=== PATIENT | male | born 2005 | race African-American/Black ===

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

== ENCOUNTER 2023-01-11 14:06 | Outpatient (AMB) | payer OTHER, SELFPAY ==
--- NOTE | 2023-01-11 14:11 | A.OFFPC_ITS ---
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 Patient is accompanied by his mother. Past medical history significant for generalized anxiety disorder, depression, ADHD diagnosed at age 3, history of SI attempt via cutting. Patient reports currently wait list for [facility] for therapist however he has been on it for very long time. Patient previously started on escitalopram 10 mg daily for anxiety. Presents today for follow-up for this patient reports the escitalopram was working for for the 1st few weeks and he felt like the 10 mg daily was not enough since states he was having a crash daily in the afternoon 6 hours after taking the medication. Patient like to try to increase the dose. Will increase to 20 mg daily. Patient reports that establish care with psychiatry and they were reinitiating him back on his Adderall however has not yet received to prescription for this. Patient advised to follow-up his psychiatrist through [facility] Medical History (Updated 01/11/23 @ 14:19 by IFTIKHAR Damon) COVID Surgical History No pertinent past surgical history Family History Mother No problems noted. Father No problems noted. Social History Household Members: Family Housing: House Alcohol intake: never Patient Tobacco Use Status: Never used Tobacco e-Cigarette/Vaping Use: Never Used Second Hand Smoke Exposure: No service: No Current occupational status: student Cognitive needs: No Hearing needs: No Vision needs: No Questionnaire Thrive Questionnaire Date Thrive assessed: 11/09/22 SOHAM-7 AMB Questionnaire SOHAM-7 Date SOHAM - 7 assessed: 11/09/22 Source: Developed by Drs. Darci Staples, Lola Chiang, Denver Feliz and colleagues, with an educational carolyn from [employer]. Review of Systems Const Denies chills, Denies fatigue, Denies fever(s) and Denies poor appetite Eyes Denies no additional complaints ENT Reports Normal hearing present Card Denies chest pain, Denies syncope, Denies rapid heart rate and Denies dyspnea Resp Denies cough and Denies dyspnea GI Denies change in stool character, Denies constipation, Denies diarrhea, Denies nausea and Denies vomiting Denies dysuria, Denies urinary frequency and Denies urinary urgency Neuro Reports Normal hearing present, Denies confusion and Denies syncope Psych Denies confusion Endo Denies fatigue Physical exam (Primary Care) Vital Signs: Last Vital Signs Pulse 102 H 01/11/23 14:12 BP 110/72 01/11/23 14:12 Pulse Ox 100 01/11/23 14:12 Oxygen Delivery Method Room Air 01/11/23 14:12 BMI result Body Mass Index 20.8 Tobacco/Smoking Status: Tobacco use Status Tobacco use date assessed 11/09/22 01/11/23 14:17 Patient Tobacco Use Status Never used Tobacco 01/11/23 14:17 e-Cigarette/Vaping Use Never Used 01/11/23 14:17 Thrive Assessment: Date of Thrive Assessment Date Thrive assessed 11/09/22 01/11/23 14:17 Const General: No confusion Orientation/consciousness: No confusion HENMT Head: Yes normocephalic and Yes atraumatic Eyes Conjunctivae: conjunctivae normal Chest Chest palpation & inspection: normal inspection of the chest Resp Effort & Inspection: normal respiratory effort Auscultation: clear to auscultation bilaterally, no crackles, no rhonchi and no wheezes Cardio Rate: regular rate Rhythm: regular rhythm Heart sounds: S1 normal heart sound present and S2 normal heart sound present GI Inspection: Yes normal to inspection Neuro General: No confusion Cranial nerves: Yes Normal hearing present Extrem General: No edema Office Procedures Flu Questionnaire Does the patient have a severe egg allergy?: No Immunizations flu vacc [id number] 6mos up(PF) 60 mcg(15 mcgx4)/0.5 mL IM syringe Performing Provider: IFTIKHAR Damon [facility] Documented (not given) by: MERY Gonsales on 01/11/23 14:31 Reason Not Given: Patient Refused Assessment and Plan Assessment & Plan (1) Generalized anxiety disorder: Code(s): F41.1 - Generalized anxiety disorder Plan: Will increase escitalopram to 20 mg daily. Patient advised if no improvement on increased dose the escitalopram follow-up with Psychiatry regarding further recommendations (2) Major depressive disorder: Code(s): F32.9 - Major depressive disorder, single episode, unspecified Plan: Will increase escitalopram to 20 mg daily. Patient advised if no improvement on increased dose the escitalopram follow-up with Psychiatry regarding further recommendations (3) ADHD: Code(s): F90.9 - Attention-deficit hyperactivity disorder, unspecified type Plan: Patient states his psychiatrist is going to be reinitiating on his Adderall. Plan Follow-up in 1 month Orders: Orders Influenza [id number] Immunization Today Z23 - Encounter for immunization Medications: New escitalopram oxalate 20 mg PO DAILY 30 tabs 3RF Discontinued escitalopram oxalate Discontinued Reason: Duplicate 10 mg PO DAILY 30 tabs 0RF F41.1 - Generalized anxiety disorder Coding Level of Care Code Est Pt Level 3 (55107) Diagnoses Generalized anxiety disorder F41.1 Major depressive disorder F32.9 ADHD F90.9
[2023-01-11 14:12] VITALS: BP 110/72; PULSE 102; O2SAT 100; BMI 20.8
== END 2023-01-11 14:29 | disposition home or self-care (01) ==
PROVIDERS: PCP Nurse Practitioner Family; Visit Provider Nurse Practitioner Family
DX: F41.1 Generalized anxiety disorder (principal); F32.9 Major depressive disorder, single episode, unspecified; F90.9 Attention-deficit hyperactivity disorder, unspecified type
CPT/HCPCS: 99213

== ENCOUNTER 2023-08-02 14:30 | Outpatient (AMB) | payer OTHER, SELFPAY ==
--- NOTE | 2023-08-02 14:34 | A.OFFPC_ITS ---
Vital Signs 08/02/23 14:37 Height 5 ft 5 in Weight 130 lb 0.2 oz BMI 21.6 BP 120/68 Blood Pressure Location Lt brachial Position Sitting Pulse 86 Pulse Source Pulse Oximeter Pulse Oximetry (%) 97 Oxygen Delivery Method Room Air Intake Visit Reasons: Anxiety/depression f/u r/s from 06/27 & 06/30 Corsetier Required: No Allergies No Known Allergies [No Known Allergies*] Allergy (Verified 08/02/23 15:02) Medication List - Last Reconciled 08/02/23 by Nikita Armenta PA-C dextroamphetamine-amphetamine 10 mg ER (Adderall XR) 1 cap PO QAM escitalopram oxalate 20 mg PO DAILY Tobacco use date assessed: 08/02/23 Dental Screening Dental Screen Date: 08/02/23 Did you have a dental visit in the last 12 months?: Yes Did you have a dental problem in the last 6 months where you did not have access to dental care?: No Was dental information given to patient?: Patient has dentist HPI Anxiety/depression f/u r/s from 06/27 & 06/30 HPI Details Patient is a 18-year-old male here today for a follow-up visit. This the 1st time I am meeting this 18-year-old male with a past medical history significant for anxiety, depression and ADHD. .. ADHD: Was going to [facility] and was seeing a counselor and a mental health med provider whom was providing patient with his mental health medications. He is now ended his semesters in needs PCP to manage his mental health medication. He reports he has found good benefit from Adderall on staying focused on his school work and part-time job tasks. .. Anxiety/ OCD: Does continue to suffer an anxiety disorder mostly related to OCD tendencies. He does report he is a Germaphobe and often his washing his hands to the point he gets skin irritation over his hands. He is on Lexapro though feels it is not as effective as he wants. He is int erested in a dedicated medication for OCD. Will transition to fluvoxamine. Also reports he is having trouble sleeping. Has tried melatonin though was ineffective. Migraines: He also reports having intermittent episodes of migraine type headaches. He attributes this to a lot of screen time in his professional and social life. He tries to use blue light protecting eyeglasses. [facility] Medical History (Updated 08/02/23 @ 15:15 by Nikita Armenta PA-C) COVID Surgical History No pertinent past surgical history Family History Mother No problems noted. Father No problems noted. Social History Household Members: Family Housing: House Alcohol intake: never Patient Tobacco Use Status: Never used Tobacco e-Cigarette/Vaping Use: Never Used Second Hand Smoke Exposure: No service: No Current occupational status: student Cognitive needs: No Hearing needs: No Vision needs: No Questionnaire PHQ-9 Over the last 2 weeks, how often have you been bothered by any of the following problems? 1. Little interest or pleasure in doing things: more than half the days 2. Feeling down, depressed, or hopeless: several days 3. Trouble falling or staying asleep, or sleeping too much: nearly every day 4. Feeling tired or having little energy: more than half the days 5. Poor appetite or overeating: several days 6. Feeling bad about yourself - or that you are a failure or have let yourself or your family down: nearly every day 7. Trouble concentrating on things, such as reading the newspaper or watching television: nearly every day 8. Moving or speaking so slowly that other people could have noticed. Or the opposite - being so fidgety or restless that you have been moving around a lot more than usual: nearly every day 9. Thoughts that you would be better off or of hurting yourself in some way: nearly every day Total score: 21 Depression Screening Interpretation: Positive Depression Screening Follow-up: Existing condition and In treatment Depression Screening Done: Yes 38245 - PHQ-9 Billing: Yes Source: Developed by Drs. Darci Staples, Lola Chiang, Denver Feliz and colleagues, with an educational carolyn from [employer]. Thrive Questionnaire Date Thrive assessed: 08/02/23 I am a: Patient What is your living situation today?: I have a steady place to live Within the past 12 months, did the food you bought not last and you didn't have the money to get more?: Never true Within the past 12 months, did you worry whether your food would run out before you got money to buy more?: Never true Do you have trouble paying for medicines?: No Do you have trouble getting transportation to medical appointments?: No Do you have trouble paying your heating and electricity bill?: No Do you have trouble taking care of your child, family member or friend?: No Do you have trouble with day-to-day activities such as bathing, preparing meals, shopping, managing finances, etc.?: No Are you currently unemployed and looking for a job?: No Are you interested in more education?: No Please select the resources that you would like help with: None Currently or been in a relationship where the following occur: no concerns reported THRIVE Score: 0 AUDIT C Alcohol Use Questionnaire (AUDIT-C) 1. How often do you have a drink containing alcohol?: Never 3. How often do you have six or more drinks on one occasion?: Never Total Score: 0 SOHAM-7 AMB Questionnaire SOHAM-7 Date SOHAM - 7 assessed: 08/02/23 Feeling nervous, anxious, or on edge: 3 = Nearly every day Not being able to stop or control worryin = Nearly every day Worrying too much about different things: 3 = Nearly every day Trouble relaxin = Nearly every day Being so restless that it is hard to sit still: 2 = More than half the days Becoming easily annoyed or irritable: 1 = Several days Feeling afraid as if something awful might happen: 2 = More than half the days Total SOHAM-7 score (0-4 normal; 5-9 mild; 10-14 moderate; 15-21 severe): 17 Source: Developed by Drs. Darci Staples, Lola Chiang, Denver Feliz and colleagues, with an educational carolyn from [employer]. SOHAM-7 Assessment Billing SOHAM-7 Assessment Tool: SOHAM-7 Assessment 46153 Review of Systems Const Reports headache(s) Eyes Denies loss of vision ENT Denies vertigo, Denies dizziness, Reports headache(s) and Denies sore throat Card Denies chest pain, Denies leg edema and Denies lightheadedness Resp Denies cough, Denies hemoptysis and Denies wheezing GI Denies abdominal pain, Denies melena, Denies constipation, Denies diarrhea and Denies vomiting Denies dysuria, Denies urinary frequency and Denies urinary urgency Musc Denies arthralgias, Denies joint swelling, Denies numbness and Denies tingling Neuro Denies Abnormal speech present, Denies behavioral changes, Denies vertigo, Denies dizziness, Reports headache(s), Denies loss of vision, Denies memory loss, Denies numbness and Denies tingling Psych Reports abnormal sleep pattern, Reports anxiety, Denies behavioral changes, Denies depression, Denies memory loss and Denies panic attacks Lenny/Lymph Denies easy bleeding and Denies easy bruising Aller/Immun Denies wheezing Physical exam (Primary Care) Vital Signs: Last Vital Signs Pulse 86 08/02/23 14:37 BP 120/68 08/02/23 14:37 Pulse Ox 97 08/02/23 14:37 Oxygen Delivery Method Room Air 08/02/23 14:37 BMI result Body Mass Index 21.6 Tobacco/Smoking Status: Tobacco use Status Tobacco use date assessed 08/02/23 08/02/23 14:39 Patient Tobacco Use Status Never used Tobacco 08/02/23 14:39 e-Cigarette/Vaping Use Never Used 08/02/23 14:39 PHQ-9: PHQ-9 Score PHQ-9: Total score 21 08/03/23 07:34 Depression Screening Interpretation: Positive Depression Screening Follow-up: Existing condition and In treatment Thrive Assessment: Date of Thrive Assessment Date Thrive assessed 08/02/23 08/02/23 14:39 Currently or been in a relationship where the following occur: no concerns reported Const General: healthy appearing, no acute distress, alert and awake Nutritional Appearance: well nourished Orientation/consciousness: oriented to person, oriented to place and oriented to time HENMT Ears: TM's normal bilaterally General nose exam: Normal nasal mucous membranes and turbinates present Eyes Conjunctivae: conjunctivae normal Sclerae: sclerae normal Pupils: Equal, round and reactive pupils present Neck Neck: Yes no lymphadenopathy and Yes no JVD Thyroid: Thyroid normal Carotids: no bruits Resp Effort & Inspection: normal respiratory effort and not tachypneic Auscultation: no crackles, no rales, no rhonchi and no wheezes Cardio Rate: regular rate Rhythm: regular rhythm Heart sounds: no murmurs and normal S1 and S2 GI Palpation (GI): Soft to palpation, nontender, no hepatomegaly and no splenomegaly Auscultation: normal bowel sounds Skin General skin exam: no rashes or lesions noted and dry skin Neuro General: oriented to person, oriented to place and oriented to time Cranial nerves: Yes Equal, round and reactive pupils present Speech: No Abnormal speech present Gait exam (Neuro): Normal gait present Motor exam (neuro): no tremor noted Extrem Right upper extremity: full ROM Left upper extremity: full ROM Right lower extremity: full ROM; no edema Left lower extremity: full ROM; no edema Psych Mental Status: mental status grossly normal Speech and movement: Normal speech and movement present Affect: normal affect Attitude: cooperative Thought process: Normal thought process present Assessment and Plan Assessment & Plan (1) Generalized anxiety disorder: Code(s): F41.1 - Generalized anxiety disorder Plan: Patient's SOHAM-7 score positive for anxiety which has been existing condition for him. He was seeing a counselor and a mental health med provider in college though has lost follow-up with his mental health med provider due to semester being over.. Does have OCD tendencies it seems. Will transition him to fluvoxamine from Lexapro to see if it works better on his anxiety and OCD tendencies. Follow-up in 6-8 weeks to evaluate effectiveness of medication. Also having issues with sleeping. He is willing to try hydroxyzine at night to help sleep. (2) ADHD: Code(s): F90.9 - Attention-deficit hyperactivity disorder, unspecified type Qualifiers: Attention deficit-hyperactivity disorder type: predominantly inattentive Qualified Code(s): F90.0 - Attention-deficit hyperactivity disorder, predominantly inattentive type Plan: Patient does have the diagnosis of ADHD and was followed by psychiatrist on campus of [facility]. He reports good benefit from Adderall on his attention focus on school and job tasks. (3) Screening for diabetes mellitus (DM): Code(s): Z13.1 - Encounter for screening for diabetes mellitus (4) Migraines: Code(s): G43.909 - Migraine, unspecified, not intractable, without status migrainosus Orders: Orders Comprehensive Malone. Panel Fast 08/02/23 Z13.1 - Encounter for screening for diabetes mellitus Medications: New dextroamphetamine-amphetamine 15 mg ER (Adderall XR) Partial Fill upon patient request. 15 mg PO DAILY 28 caps 0RF 28 days F90.0 - Attention-deficit hyperactivity disorder, predominantly inattentive type fluvoxamine 25 mg PO BEDTIME 30 tabs 1RF 30 days F41.1 - Generalized anxiety disorder, F42.9 - Obsessive-compulsive disorder, unspecified, G43.909 - Migraine, unspecified, not intractable, without status migrainosus [id number] 250-250-65 mg (Excedrin Extra Strength) 1 tab PO Q6H PRN 20 tabs 0RF pain 5 days G43.909 - Migraine, unspecified, not intractable, without status migrainosus hydroxyzine HCl 10 mg PO BEDTIME 30 tabs 0RF 30 days F41.1 - Generalized anxiety disorder, F41.9 - Anxiety disorder, unspecified Discontinued escitalopram oxalate Discontinued Reason: Doctor's Order 20 mg PO DAILY 30 tabs 3RF Coding Level of Care Code Est Pt Level 4 (81558) Diagnoses Generalized anxiety disorder F41.1 Attention deficit hyperactivity disorder (ADHD), predominantly inattentive type F90.0 Attention deficit-hyperactivity disorder type: predominantly inattentive Screening for diabetes mellitus (DM) Z13.1 Migraines G43.909 Additional Codes SOHAM-7 Assessment Billing - SOHAM-7 Assessment Tool: SOHAM-7 Assessment 29527 ([id number])
[2023-08-02 14:37] VITALS: BP 120/68; PULSE 86; O2SAT 97; BMI 21.6
== END 2023-08-02 15:57 | disposition home or self-care (01) ==
PROVIDERS: PCP Physician Assistant; Visit Provider Physician Assistant
DX: F41.1 Generalized anxiety disorder (principal); F90.0 Attention-deficit hyperactivity disorder, predominantly inattentive type; G43.909 Migraine, unspecified, not intractable, without status migrainosus; F33.9 Major depressive disorder, recurrent, unspecified
CPT/HCPCS: 99214

== ENCOUNTER 2024-04-17 11:13 | Outpatient (AMB) | payer OTHER, SELFPAY ==
--- NOTE | 2024-04-17 11:45 | A.OFFPC_ITS ---
Vital Signs 04/17/24 11:46 Height 5 ft 5 in Weight 133 lb 6 oz BMI 22.2 BP 110/62 Blood Pressure Location Lt brachial Position Sitting Pulse 66 Pulse Source Pulse Oximeter Temp 97.5 F Temp Source Temporal Artery Scan Pulse Oximetry (%) 100 Oxygen Delivery Method Room Air Intake Visit Reasons: Annual Physical Intake Note: Patient is here today for a physical. Sample Driller Required: No Accompanied by: Mother Allergies No Known Allergies [No Known Allergies*] Allergy (Verified 04/17/24 12:01) Medication List - Last Reconciled 04/17/24 by Nikita Armenta PA-C [id number]-empdmimxquslu-mhebhpov 250-250-65 mg (Excedrin Extra Strength) 1 tab PO Q6H PRN 5 days dextroamphetamine-amphetamine 15 mg ER (Adderall XR) 15 mg PO DAILY 28 days dicyclomine 10 mg PO QID 30 days fluvoxamine 25 mg PO BEDTIME 30 days hydroxyzine HCl 10 mg PO BEDTIME 30 days Tobacco use date assessed: 08/02/23 Dental Screening Dental Screen Date: 08/02/23 HPI Annual Physical HPI Details Patient is a 18-year-old male here today for routine annual physical. Patient has a past medical history significant for anxiety, depression and ADHD. .. ADHD: Was going to [facility] and was seeing a counselor and a mental health med provider whom was providing patient with his mental health medications. He has lost follow up with a psychiatrist and now needs PCP to manage his mental health medication including a stimulant ADHD medication. He reports benefit from ADHD medication with attention and focus on his course work. .. Anxiety/ OCD: Does continue to suffer an anxiety disorder mostly related to OCD tendencies. He does report he is a Germaphobe and often his washing his hands to the point he gets skin irritation over his hands. He has unfortunately lost his left follow up with a psychiatrist He is on Lexapro though he is transitioned to fluvoxamine though did not fill those effective. Like to transition back to Lexapro. Also reports he is having trouble sleeping. Has tried melatonin though was ineffective. IBS- he has been diagnosed with IBS few years ago. He does have daily symptoms of abdominal bloating and pain worse in the morning when he wakes up. He reports he is often tardy to classes that are early 08:00 classes due to his abdominal pain. He is asking for accommodations to give him forgivingness on being up to 10 minutes tardy for a.m. classes Vaccines: Up-to-date with COVID vaccine, flu vaccine, tetanus vaccine. [facility] Medical History COVID Surgical History No pertinent past surgical history Family History Mother No problems noted. Father No problems noted. Social History (Updated 04/17/24 @ 12:06 by Nikita Armenta PA-C) Household Members: Family Housing: House Alcohol intake: never Patient Tobacco Use Status: Never used Tobacco e-Cigarette/Vaping Use: Never Used Second Hand Smoke Exposure: No service: No Current occupational status: student Current occupation: [employer] Cognitive needs: No Hearing needs: No Vision needs: No Questionnaire PHQ-9 Over the last 2 weeks, how often have you been bothered by any of the following problems? 1. Little interest or pleasure in doing things: nearly every day 2. Feeling down, depressed, or hopeless: several days 3. Trouble falling or staying asleep, or sleeping too much: nearly every day 4. Feeling tired or having little energy: nearly every day 5. Poor appetite or overeating: nearly every day 6. Feeling bad about yourself - or that you are a failure or have let yourself or your family down: nearly every day 7. Trouble concentrating on things, such as reading the newspaper or watching television: nearly every day 8. Moving or speaking so slowly that other people could have noticed. Or the opposite - being so fidgety or restless that you have been moving around a lot more than usual: nearly every day 9. Thoughts that you would be better off or of hurting yourself in some way: several days Total score: 23 Depression Screening Interpretation: Positive Depression Screening Follow-up: Existing condition Depression Screening Done: Yes 69825 - PHQ-9 Billing: Yes Source: Developed by Drs. Darci Staples, Lola Chiang, Denver Feliz and colleagues, with an educational carolyn from [employer]. Thrive Questionnaire Date Thrive assessed: 04/17/24 I am a: Patient What is your living situation today?: I choose not to answer this question Within the past 12 months, did the food you bought not last and you didn't have the money to get more?: Often true Within the past 12 months, did you worry whether your food would run out before you got money to buy more?: Often true Do you have trouble paying for medicines?: No Do you have trouble getting transportation to medical appointments?: No Do you have trouble paying your heating and electricity bill?: No Do you have trouble taking care of your child, family member or friend?: No Do you have trouble with day-to-day activities such as bathing, preparing meals, shopping, managing finances, etc.?: No Are you currently unemployed and looking for a job?: No Are you interested in more education?: Yes Please select the resources that you would like help with: Food, Utilities and Education Currently or been in a relationship where the following occur: No concerns reported THRIVE Score: 2 AUDIT C Alcohol Use Questionnaire (AUDIT-C) 1. How often do you have a drink containing alcohol?: Never 3. How often do you have six or more drinks on one occasion?: Never Total Score: 0 SOHAM-7 AMB Questionnaire SOHAM-7 Date SOHAM - 7 assessed: 04/17/24 Feeling nervous, anxious, or on edge: 3 = Nearly every day Not being able to stop or control worryin = Nearly every day Worrying too much about different things: 3 = Nearly every day Trouble relaxin = Nearly every day Being so restless that it is hard to sit still: 3 = Nearly every day Becoming easily annoyed or irritable: 3 = Nearly every day Feeling afraid as if something awful might happen: 3 = Nearly every day Total SOHAM-7 score (0-4 normal; 5-9 mild; 10-14 moderate; 15-21 severe): 21 Source: Developed by Drs. Darci Staples, Lola Chiang, Denver Feliz and colleagues, with an educational carolyn from [employer]. SOHAM-7 Assessment Billing SOHAM-7 Assessment Tool: SOHAM-7 Assessment 71301 Review of Systems Const Denies body aches, Denies chills, Denies excessive sweating, Denies fatigue, Denies fever(s) and Denies headache(s) Eyes Denies blurry vision ENT Denies dysphagia, Denies vertigo, Denies dizziness, Denies headache(s), Denies hearing loss and Denies tinnitus Card Denies chest pain, Denies chest pain with activity, Denies syncope, Denies irregular heart rhythm and Denies dyspnea Resp Denies chest congestion, Denies cough, Denies hemoptysis, Denies dyspnea and Denies wheezing GI Denies abdominal pain, Denies melena, Denies hematochezia, Denies coffee ground emesis, Denies dysphagia, Denies diarrhea, Denies nausea and Denies vomiting Denies difficulty urinating, Denies dysuria, Denies urinary frequency, Denies urinary hesitancy and Denies urinary urgency Musc Denies arthralgias, Denies limited range of motion, Denies muscle cramps and Denies muscle weakness Skin/Breast Denies rash and Denies skin ulcer Neuro Denies Abnormal speech present, Denies confusion, Denies vertigo, Denies dizziness, Denies syncope, Denies headache(s), Denies memory loss and Denies seizure-like activity Psych Denies anxiety, Denies confusion, Denies depression, Denies memory loss, Denies panic attacks and Denies paranoia Endo Denies excessive sweating, Denies fatigue, Denies flushing, Denies polydipsia and Denies polyuria Aller/Immun Denies wheezing Physical exam (Primary Care) Vital Signs: Last Vital Signs Temp 97.5 F 04/17/24 11:46 Pulse 66 04/17/24 11:46 BP 110/62 04/17/24 11:46 Pulse Ox 100 04/17/24 11:46 Oxygen Delivery Method Room Air 04/17/24 11:46 BMI result Body Mass Index 22.2 Tobacco/Smoking Status: Tobacco use Status Tobacco use date assessed 08/02/23 04/17/24 11:45 Patient Tobacco Use Status Never used Tobacco 04/17/24 12:06 e-Cigarette/Vaping Use Never Used 04/17/24 12:06 PHQ-9: PHQ-9 Score PHQ-9: Total score 23 04/17/24 13:38 Depression Screening Interpretation: Positive Depression Screening Follow-up: Existing condition Thrive Assessment: Date of Thrive Assessment Date Thrive assessed 04/17/24 04/17/24 11:48 Currently or been in a relationship where the following occur: No concerns reported Const General: cooperative, comfortable, no acute distress, alert and awake; No confusion Orientation/consciousness: oriented to person, oriented to place, patient oriented x3 and No confusion HENMT Head: Yes normocephalic Ears: external ears normal and TM's normal bilaterally Face and sinus: No sinus tenderness Mouth: Normal oral and palatal mucosa present and tongue normal Teeth and gingiva: dentition normal and gingiva normal Throat: Yes posterior oropharynx normal, Yes tonsils normal and Yes uvula midline Eyes Conjunctivae: conjunctivae normal Sclerae: sclerae normal Pupils: Equal, round and reactive pupils present EOM: EOMs intact bilaterally Direct Ophthalmoscopy: No no photophobia Neck Neck: Yes no lymphadenopathy, No tender and Yes no JVD Thyroid: Thyroid normal Carotids: no bruits Chest Chest palpation & inspection: no tenderness Resp Effort & Inspection: normal respiratory effort, no audible wheezes, not labored and no stridor Auscultation: no crackles, no rales, no rhonchi and no wheezes Cardio Jugular venous distension: no JVD Rate: regular rate, not bradycardic and not tachycardic Rhythm: regular rhythm Bruits: no carotid bruits Peripheral pulses: Peripheral pulses 2+ throughout GI Inspection: Yes normal to inspection, No abdominal wall ecchymosis and No visible herniation Palpation (GI): Soft to palpation, nontender, no guarding, not rigid and No hepatosplenomegaly present Auscultation: normoactive bowel sounds General: Yes no CVA tenderness Back/Spine/Pelvis Back: no CVA tenderness and No back tenderness Cervical Spine: cervical ROM normal Thoracic/Lumbar Spine: thoracic and lumbar spine normal to inspection, straight leg raise negative bilaterally, No thoraco-lumbar ROM limited and No lumbar spinal tenderness Skin Lesions: no lesions Rashes: no rashes Wounds: no wounds Neuro General: oriented to person, oriented to place, patient oriented x3, CN's II-XI intact bilaterally and No confusion Cranial nerves: Yes Equal, round and reactive pupils present and Yes Normal accommodation reflex present Cognition (Neuro): normal cognition Speech: No Abnormal speech present Gait exam (Neuro): Normal gait present Motor exam (neuro): 5/5 motor strength present throughout Extrem Right upper extremity: full ROM; no cyanosis Left upper extremity: full ROM; no cyanosis Right lower extremity: no edema Left lower extremity: no edema Psych Appearance: grossly normal Mental Status: mental status grossly normal Affect: normal affect Attitude: cooperative Thought process: Normal thought process present Office Procedures Flu Questionnaire Does the patient have a severe egg allergy?: No Does the patient have severe life threatening allergies?: No Does the patient have a fever or illness today?: No Has the patient ever had Guillain-[place] Syndrome?: No Has the patient ever had any past reaction to a flu shot?: No Immunizations Fluarix Triv 0851-1308 (PF) 45 mcg (15 mcg x 3)/0.5 mL IM syringe Performing Provider: Nikita Armenta PA-C [facility] Administered by: IVETT Calvert on 04/17/24 11:54 Dose Route Admin Location Dispensed Lot Number Expiration Date NDC Mental Retardation Nurse 0.5 mL IM Left Deltoid 0.5 mL [id number] 09/18/24 [id number] [facility] VIS Given Date VIS Provided VIS Publication Date 04/17/24 Single Vaccine 20 Eligibility Eligibility Date Funding Source Not [facility] Eligible 04/17/24 Private Coding Level of Care Code Est Pt Prev Care 18-39y([id number]) Diagnoses Annual physical exam Z00.00 Moderate episode of recurrent major depressive disorder F33.1 Active/Remission status: currently active Major depression episode severity: moderate Major depression recurrence: recurrent Generalized anxiety disorder F41.1 Attention deficit hyperactivity disorder (ADHD), predominantly inattentive type F90.0 Attention deficit-hyperactivity disorder type: predominantly inattentive Mixed obsessional thoughts and acts F42.2 Obsessive-compulsive disorder type: mixed obsessional thoughts and acts Irritable bowel syndrome with both constipation and diarrhea K58.2 Irritable bowel syndrome type: with both diarrhea and constipation Additional Codes SOHAM-7 Assessment Billing - SOHAM-7 Assessment Tool: SOHAM-7 Assessment 09472 ([id number]) PHQ-9 - 04895 - PHQ-9 Billing: Yes ([id number]) Assessment & Plan Assessment & Plan (1) Annual physical exam: Code(s): Z00.00 - Encounter for general adult medical examination without abnormal findings Category: Medical Plan: As per HPI (2) Major depressive disorder: Code(s): F32.9 - Major depressive disorder, single episode, unspecified Category: Medical Qualifiers: Active/Remission status: currently active Major depression episode severity: moderate Major depression recurrence: recurrent Qualified Code(s): F33.1 - Major depressive disorder, recurrent, moderate Plan: Patient's PHQ-9 score positive for depression which has been existing condition for him. He is interested in restarting Lexapro 10 mg for his depression and anxiety. He is looking to get back into a counselor and eventually a psychiatrist to manage his mental health as well. (3) Generalized anxiety disorder: Code(s): F41.1 - Generalized anxiety disorder Category: Medical Plan: Patient's SOHAM-7 positive for anxiety which has been existing condition for him. He also has OCD. Again will restart Lexapro 10 mg (4) ADHD: Code(s): F90.9 - Attention-deficit hyperactivity disorder, unspecified type Category: Medical Qualifiers: Attention deficit-hyperactivity disorder type: predominantly inattentive Qualified Code(s): F90.0 - Attention-deficit hyperactivity disorder, predominantly inattentive type Plan: As per HPI patient does have history of ADHD and was on stimulant ADHD medication. He has lost follow-up with Psychiatry in needs PCP to manage his stimulant ADHD medication. 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 (5) OCD (obsessive compulsive disorder): Code(s): F42.9 - Obsessive-compulsive disorder, unspecified Category: Medical Qualifiers: Obsessive-compulsive disorder type: mixed obsessional thoughts and acts Qualified Code(s): F42.2 - Mixed obsessional thoughts and acts Plan: As above (6) Irritable bowel syndrome: Code(s): K58.9 - Irritable bowel syndrome, unspecified Category: Medical Qualifiers: Irritable bowel syndrome type: with both diarrhea and constipation Qualified Code(s): K58.2 - Mixed irritable bowel syndrome Plan: As per HPI patient has a long history of irritable bowel syndrome likely related to his mental health disorders. He reports in the mornings his symptoms are worse with abdominal bloating and pain that is not allow him to get started early enough to make it to his classes. Orders: Orders Influenza [id number] Immunization Today Z23 - Encounter for immunization Comprehensive [place]. Panel Fast Today Z13.1 - Encounter for screening for diabetes mellitus Complete Blood Count no Diff Today Z13.1 - Encounter for screening for diabetes mellitus Medications: New escitalopram oxalate 10 mg PO DAILY 30 tabs 0RF 30 days F42.9 - Obsessive- compulsive disorder, unspecified Refilled dextroamphetamine-amphetamine 15 mg ER (Adderall XR) Partial Fill upon patient request. 15 mg PO DAILY 28 caps 0RF 28 days F90.0 - Attention-deficit hyperactivity disorder, predominantly inattentive type Discontinued fluvoxamine Discontinued Reason: Doctor's Order 25 mg PO BEDTIME 30 days 30 tabs 1RF F41.1 - Generalized anxiety disorder, F42.9 - Obsessive-compulsive disorder, unspecified, G43.909 - Migraine, unspecified, not intractable, without status migrainosus
[2024-04-17 11:46] VITALS: BP 110/62; PULSE 66; TEMP 36.4; O2SAT 100; BMI 22.2
--- OUTSIDE RECORDS SUMMARY | 2024-04-17 16:08 | XMS_ITS | Continuity of Care Document ---
Author Organization [facility] Address [address] [place] [address] Phone Care Team Providers Care Html Developer Name Role Phone Aiden Chiang RDH Unavailable [...] ANY ROUTE 1ST VAC/TOX, W/ Counseling HPV [id number],nonaval HP V 3 Dose IMMUNIZATION ADM <= [...] Diagnoses Date Provider Providers Copied on Encounter [facility], [address] [place], [address], [place] tel:[phone] [facility] Dental Encounter for dental exam and cleaning w/o abnormal findings [address], [id number] , [place], [place], [id number], [place]. tel:[phone] PREV VISIT, EST, AGE 5-11 [facility], [address] [place] [address], [address], [place] tel:[phone] [facility] Pediatrics Well Visit (preventat reyna) (chief [...] tension-type headache, not intractable 6 No Information [facility], [address] [place] [address], [address], [place] tel:[phone] [facility] Pediatrics No Information 6 No Information [facility], [address] [place] [address], [address], [place] tel:[phone] [facility] Dental Encounter for dental exam and cleaning w/o abnormal findings [address] [place] [address], [id number] [place], [place], [id number], [place]. tel:[phone] OFFICE/OUTPA TIENT VISIT, [facility], [address] [place] [address], [address], [place] tel:[phone] [facility] Pediatrics fever (chief complaint) Upper respiratory infection with cough and congestion 6 No Information OFFICE/OUTPA TIENT VISIT, [facility], [address] [place] [address], [address], [place] tel:[phone] [facility] Pediatrics Abdominal pain (chief complaint) Viral infectionCons tipation 5 No Information [facility], [address] [place] [address], [address], [place] tel:[phone] [facility] Pediatrics No Information 4 No Information PREV VISIT, [facility], AGE 5-11 [facility], [address] [place] [address], [address], [place] tel:[phone] [facility] Pediatrics Well Visit (preventat reyna) (chief complaint) hgb 11 (chief complaint) ADD/ADHD (chief complaint) ROUTIN CHILD HEALTH EXAMEXAM EARS & HEARING NECDietary surveillance and counselingScr eening for iron deficiency anemiaADHD 4 No Information [facility], [address] [place], [address], tel:[phone] Conversion NEED FOR INFLUENZA VACCINATIONWE CHILD - ROUTINE VISITECZEMA 3 No Information [facility], [address] [place], [address], tel:[phone] Historic Immunization Location No Information 3 No [...] Provider Hib (PRP-OMP) administered Source: Other Provider MMR administered Source: Other P rovider DTaP (younger than 7 yrs) administered So urce: Other Provider PCV13 administered Source: Other P rovider diphtheria, tetanus toxoids and acellular pertussis vaccine, Haemophilus influenzae type b conjugate, and poliovirus vaccine, inactivated (UDfN-Ebb-WBP) administered Source: Other Provider Hep B (ped/adol, 3 dose) administered Mar rce: Other Provider PCV13 administered Source: Other P rovider diphtheria, tetanus toxoids and acellular pertussis vaccine, Haemophilus influenzae type b conjugate, and poliovirus vaccine, inactivated (DMzZ-Djj-RPU) administered Source: Other Provider Hep B (ped/adol, 3 dose) administered Mar rce: Other Provider diphtheria, tetanus toxoids and acellular pertussis vaccine, Haemophilus influenzae type b conjugate, and poliovirus vaccine, inactivated ([id number]-[id number]-[id number]) administered Source: Other Provider PCV13 administered Source: Other P rovider Hep B (ped/adol, 3 dose) administered Mar rce: Other Provider IMMUNE ADMIN ORAL/NASAL administered Sour ce: New Immunization Record Payers Payer name Insurance type Covered alliance party ID Authornoela tilarissa(s) D Medicaid [id number] [employer] [id number] [employer] [id number] Social History Type Description Quantity Date Captured Comments Sex Male Smoking Status No Information Chief Complaint And Reason For Visit No Information Reason For Referral Reason For Referral No Information Plan Of Treatment Date Type Action Status Goal Diet education completed Goal Diet education completed History Of Present Illness Encounter Date Complaint History Of Prese nt Illness hgb= 14.9 Headache The severity of the problem is [...] fever, illnesses or hospitalizations. Sees dentist regularly. fever Duration is 2 Da ys. The [...] Additional information: Previously tx for ADHD in [place]. No longer taking medications. Mom would like [...] to Allergic rhinitis, unspecified allergic rhinitis type Immunizations: HPV, MCV, Tdap, f abbey Related to Encntr for routine child health exam w/o abnormal findings Benzoclin BID-Can ta ke up to 4-6 weeks to see results-Irritation may occur, limit sun exposure/use sunscreen-F/u if no improvement in 4-6 weeks for alternative treatment options Related to Acne vulgaris Referral made to [facility] Behavioral HealthMother to make appt Related to Attention-deficit hyperactivity disorder, unspecified type Diet education Related to Dieta ry counseling and surveillance Exercise education Related to Di etary counseling and surveillance Handout given Related to [...] viralIncrease fluidsTylenol/motrin for feverhoney for coughReturn to [facility] or go to the ED if symptoms worsen or do not improve.The parent/patient verbalized an understanding of all instructions. Related to Upper respiratory infection with cough and congestion Educated that antibi otics are not prescribed for viral infections. Related to Upper respiratory infection with cough and congestion 1. Increase fluids a nd increase rest.2. Branch diet as tolerated3. Use saline nasal spray, [...]
== END 2024-04-17 12:32 | disposition home or self-care (01) ==
PROVIDERS: PCP Physician Assistant; Visit Provider Physician Assistant
DX: Z00.00 Encounter for general adult medical examination without abnormal findings (principal); F33.1 Major depressive disorder, recurrent, moderate; F41.1 Generalized anxiety disorder; F90.0 Attention-deficit hyperactivity disorder, predominantly inattentive type; F42.2 Mixed obsessional thoughts and acts; K58.2 Mixed irritable bowel syndrome; Z23 Encounter for immunization

== ENCOUNTER 2024-04-17 11:13 | Outpatient (REF) | payer MEDICAID, SELFPAY ==
[2024-04-17 13:24] LABS: Hematocrit 43.5 % (42.0-52.0); Hemoglobin 14.2 g/dl (14.0-18.0); Mean Corpuscular HGB Conc 32.6 g/dl (31.0-36.0); Mean Corpuscular Hemoglobin 28.1 pg (27.0-33.0); Mean Platelet Volume 10.1 fL (9.4-12.4); Platelet Count 216 X10*3/uL (160-400); Red Blood Count 5.06 X10*6/uL (4.60-5.80); Red Cell Distribution Width 13.7 % (11.0-16.0); White Blood Count 4.7 X10*3/uL (4.8-10.8)
[2024-04-17 13:50] LABS: Alanine Aminotransferase 26 U/L (0-40); Albumin Level 4.4 g/dL (3.5-5.0); Anion Gap 12 (12-20); Aspartate Amino Transferase 21 U/L (5-37); Bilirubin Total 0.3 mg/dL (0.0-1.0); Blood Urea Nitrogen 12 mg/dL (9-16); Calcium 9.4 mg/dL (8.4-10.2); Carbon Dioxide 23 mmol/L (22-29); Chloride 110 mmol/L (96-108); Estimated Glomerular Filt Rate > 60; Glucose Fasting 94 mg/dL (60-99); Potassium 4.1 mmol/L (3.3-5.1); Sodium 141 mmol/L (135-145); Total Protein 7.6 g/dL (6.5-8.0)
[2024-04-17 14:07] LABS: Alkaline Phosphatase 79 U/L (39-117)
--- OUTSIDE RECORDS SUMMARY | 2024-04-17 17:21 | XMS_ITS | Continuity of Care Document ---
Author Organization [facility] vices Address [address] [place] [address] Phone Care Team Providers Care Enterprise Application Architect Name Role Phone Aiden Chiang RDH Unavailable Unavailable Allergies, Adverse Reactions, Alerts Substance Reaction Status Criticality No Known Allergies Active No Inform ation No Known Allergies Active No Inform ation Medications Medication Instructions Dosage Effective Dates (start - stop) Status Comments cetirizine 10 mg tablet take 1 tablet by oral route every day 10 MG - Active Flonase 50 mcg/actuation nasal spray,suspension inhale 1 spray by intranasal route every day in each nostril - Active Benzaclin 1 %-5 % topical gel apply by topical route 2 times every day to the affected area(s) in the morning and evening - Active Brand only penicillin V potassium 500 mg tablet take [...] ANY ROUTE 1ST VAC/TOX, W/ Counseling HPV [id number],nonaval HP V 3 Dose IMMUNIZATION ADM <= [...] Diagnoses Date Provider Providers Copied on Encounter [facility], [address] [place], [address], [place] tel:[phone] [facility] Dental Encounter for dental exam and cleaning w/o abnormal findings [address], [id number] , [place], [place], [id number], [place]. tel:[phone] PREV VISIT, EST, AGE 5-11 [facility], [address] [place] [address], [address], [place] tel:[phone] [facility] Pediatrics Well Visit (preventat reyna) (chief complaint) Headache (chief complaint) hgb= 14.9 (chief complaint) ADD/ADHD (chief complaint) Encntr for routine child health exam w/o abnormal findingsDieta ry counseling and surveillanceE ncounter for exam of ears and hearing w/o abnormal findingsEncou nter for screening, unspecifiedAc ne vulgarisAtten tion-deficit hyperactivity disorder, unspecified typeAllergic rhinitis, unspecified allergic rhinitis typeEpisodic tension-type headache, not intractable 6 No Information [facility], [address] [place] [address], [address], [place] tel:[phone] [facility] Pediatrics No Information 6 No Information [facility], [address] [place] [address], [address], [place] tel:[phone] [facility] Dental Encounter for dental exam and cleaning w/o abnormal findings 6 [address]fe. [address] [place] [address], [id number] [place], [place], [id number], [place]. tel:[phone] OFFICE/OUTPA TIENT VISIT, [facility], [address] [place] [address], [address], [place] tel:[phone] [facility] Pediatrics fever (chief complaint) Upper respiratory infection with cough and congestion 6 No Information OFFICE/OUTPA TIENT VISIT, [facility], [address] [place] [address], [address], [place] tel:[phone] [facility] Pediatrics Abdominal pain (chief complaint) Viral infectionCons tipation 5 No Information [facility], [address] [place] [address], [address], [place] tel:[phone] [facility] Pediatrics No Information 4 No Information PREV VISIT, [facility], AGE 5-11 [facility], [address] [place] [address], [address], [place] tel:[phone] [facility] Pediatrics Well Visit (preventat reyna) (chief complaint) hgb 11 (chief complaint) ADD/ADHD (chief complaint) ROUTIN CHILD HEALTH EXAMEXAM EARS & HEARING NECDietary surveillance and counselingScr eening for iron deficiency anemiaADHD 4 No Information [facility], [address] [place] [address], [address], tel:[phone] Conversion NEED FOR INFLUENZA VACCINATIONWE CHILD - ROUTINE VISITECZEMA 3 No Information [facility], [address] [place], [address], tel:[phone] Historic Immunization Location No Information 3 No Information Family History Family Member Type Diagnosis Age At Onset Brother Problem (finding) asthma Problem (finding) Mother Problem (finding) Anxiety Brother Problem (finding) attention defi cit hyperactivity disorder Maternal grandmother Problem (finding) asthma Brother Problem (finding) Eczema Maternal grandmother Problem (finding) migraine Immunizations Vaccine Date Status Comments HPV (9-valent) administered Source: New I mmunization Record Influenza, live, intranasal, quadrivalent administered Source: New Immuniza tion Record MCV4 (11-55 yrs) administered Source: New Immunization Record Tdap administered Source: New Imm unization Record Hep A (ped/adol, 2 dose) administered Mar rce: New Immunization Record Influenza virus vaccine, intranasal administered Source: New Immuniza tion Record Varicella administered Source: New Imm unization Record FLU VACCINE, NASAL administered Source: N ew Immunization Record MMR administered Source: Other P rovider DTaP-IPV administered Source: Other P rovider Varicella administered Source: Other P rovider Hep A (ped/adol, 2 dose) administered Mra rce: Other Provider Hib (PRP-OMP) administered Source: Other Provider MMR administered Source: Other P rovider DTaP (younger than 7 yrs) administered So urce: Other Provider PCV13 administered Source: Other P rovider diphtheria, tetanus toxoids and acellular pertussis vaccine, Haemophilus influenzae type b conjugate, and poliovirus vaccine, inactivated (QHqM-Sih-EUG) administered Source: Other Provider Hep B (ped/adol, 3 dose) administered Mar rce: Other Provider PCV13 administered Source: Other P rovider diphtheria, tetanus toxoids and acellular pertussis vaccine, Haemophilus influenzae type b conjugate, and poliovirus vaccine, inactivated ([id number]-Ozd-ETZ) administered Source: Other Provider Hep B (ped/adol, 3 dose) administered Mar rce: Other Provider diphtheria, tetanus toxoids and acellular pertussis vaccine, Haemophilus influenzae type b conjugate, and poliovirus vaccine, inactivated (KVgZ-Hpl-RPZ) administered Source: Other Provider PCV13 administered Source: Other P rovider Hep B (ped/adol, 3 dose) administered Mar rce: Other Provider IMMUNE ADMIN ORAL/NASAL administered Sour ce: New Immunization Record Payers Payer name Insurance type Covered democrat ID Authoriza tilarissa(s) D Medicaid [id number] [facility] [id number] [facility] [id number] Social History Type Description Quantity Date Captured Comments Sex Male Smoking Status No Information Chief Complaint And Reason For Visit No Information Reason For Referral Reason For Referral No Information Plan Of Treatment Date Type Action Status Goal Diet education completed Goal Diet education completed History Of Present Illness Encounter Date Complaint History Of Prese nt Illness hgb= 14.9 Well Visit (preventative) Here f or annual well child check. Pertinent past medical history includes ADHD and eczema. Child is not currently on any daily meds. Child has no known allergies. There have been no recent fever, illnesses or hospitalizations. Sees dentist regularly. ADD/ADHD The severity of the problem is moderate. The problem is worse. The frequency of the problem is daily. The behavior is described as problems at home and at school. Symptoms are associated with prior diagnosis of ADD/ADHD. Behaviors began before age 5 to some degree. Relevant symptoms of hyperactivity include fighting. Headache The severity of the problem is mild. Pain scale: 0/10. The symptoms are recurring. Locations affected include frontal. Headache timing includes daytime. Aggravating factors include anxiety and noise. Associated symptoms include phonophobia. Pertinent negatives include blurred vision, dizziness, fever, memory loss, nausea or neck stiffness. fever Duration is 2 Da ys. The [...] dizziness, dyspnea, eructation, fever, rash and vomiting. hgb 11 Well Visit (preventative) Doing well. Well hydrated. Good growth and weight gain. No recent medical problems. Sees dentist regularly. Plays footbal and basketball. ADD/ADHD The behavior is described as problems at home and at school. Symptoms are associated with prior diagnosis of ADD/ADHD. Behaviors began before age 5 to some degree. Relevant symptoms of hyperactivity include fighting. Additional information: Previously tx for ADHD in [place]. No longer taking medications. Mom would like referral. Functional Status Date Functional Assessmen t No Information Instructions Date Instruction Additional Infor luz marina tylenol or advil as neededdrink water throughout the day.Don't skip meals.Avoid caffeine (soda, tea, coffee, chocholate).Get at least 8 hours of sleep a night.F/u if headaches worsen or are not relieved by tylenol/advil. Related to Episodic tension-type headache, not intractable Immunizations: HPV, MCV, Tdap, f abbey Related to Encntr for routine child health exam w/o abnormal findings Benzoclin BID-Can ta ke up to 4-6 weeks to see results-Irritation may occur, limit sun exposure/use sunscreen-F/u if no improvement in 4-6 weeks for alternative treatment options Related to Acne vulgaris Referral made to [facility] Behavioral HealthMother to make appt Related to Attention-deficit hyperactivity disorder, unspecified type Cetirizine dailyflon ase dailyfollow-up if symptoms worsen or do not improve Related to Allergic rhinitis, unspecified allergic rhinitis type Age appropriate anti cipatory guidance discussed (11-14 years) Related to Encntr for routine child health exam w/o abnormal findings Age appropriate diet discussed (11-14 years) Related to Encntr for routine child health exam w/o abnormal findings Age appropriate safe ty discussed (11-14 years) Related to Encntr for routine child health exam w/o abnormal findings Oral Health Discussed (-14 yea rs) Related to Encntr for routine child health exam w/o abnormal findings Handout given Related to Encnt r for routine child health exam w/o abnormal findings Exercise education Related to Di etary counseling and surveillance Diet education Related to Dieta ry counseling and surveillance Rapid strep was nega tive. Throat Cx sentUpper respiratory infection, likely viralIncrease fluidsTylenol/motrin for feverhoney for coughReturn to [facility] or go to the ED if symptoms worsen or do not improve.The parent/patient verbalized an understanding of all instructions. Related to Upper respiratory infection with cough and congestion Educated that antibi otics are not prescribed for viral infections. Related to Upper respiratory infection with cough and congestion 1. Increase fluids a nd increase rest.2. Mcnairy diet as tolerated3. Use saline nasal spray, as needed, for congestion or nasal irritation.4. Acetaminophen (Tylenol) or Ibuprofen (Advil), as needed, for pain or fever. 5. Symptomatic treatment, as needed-- throat lozenges, tea/honey, etc.6. If symptoms worsen, persist longer than 1 week, or if difficulty breathing develops, return to clinic or go to the emergency room right away. Related to Viral infection Exercise education Related to Di etary surveillance and counseling Diet education Related to Dieta ry surveillance and counseling Age approriate antic ipatory guidance discussed (9-10 years) Related to ROUTIN CHILD HEALTH EXAM Age appropriate diet discussed (9-10 years) Related to ROUTIN CHILD HEALTH EXAM Age appropriate safe ty discussed (9-10 years) Related to ROUTIN CHILD HEALTH EXAM Oral Health Discussed (9-10 year s) Related to ROUTIN CHILD HEALTH EXAM Assessments Type Assessment Date No Information Patient Care Teams Name Effective Dates (start - stop) Status Members No Information
== END 2024-04-17 11:14 | disposition home or self-care (01) ==
LOC: HO.LAB 11:13
PROVIDERS: PCP Physician Assistant; Visit Provider Physician Assistant
DX: Z00.00 Encounter for general adult medical examination without abnormal findings (principal); Z23 Encounter for immunization; F33.1 Major depressive disorder, recurrent, moderate; F41.1 Generalized anxiety disorder; F90.0 Attention-deficit hyperactivity disorder, predominantly inattentive type; F42.2 Mixed obsessional thoughts and acts; K58.2 Mixed irritable bowel syndrome; Z13.1 Encounter for screening for diabetes mellitus
CPT/HCPCS: 36415; 80053; 85027; 90471; 90656; 96127; 99395

== ENCOUNTER 2024-08-21 15:07 | Outpatient (AMB) | payer OTHER, SELFPAY ==
--- NOTE | 2024-08-21 15:11 | MHC.PC.OV ---
Vital Signs 08/21/24 15:13 Height 5 ft 5 in Weight 141 lb 4 oz BMI 23.5 BP 90/60 Blood Pressure Location Lt brachial Position Sitting Pulse 73 Pulse Source Pulse Oximeter Temp 97.3 F Temp Source Temporal Artery Scan Pulse Oximetry (%) 98 Oxygen Delivery Method Room Air Intake Visit Reasons: 4 Month F/U Intake Note: Patient is here to follow up on IBS, OCD, ADHD, Migraine. Code Clerk Required: No Merchandise Buyer: Not Required per policy Accompanied by: Self / Same As Patient Allergies No Known Allergies [No Known Allergies*] Allergy (Verified 08/21/24 15:27) Medication List - Last Reconciled 08/21/24 by Nikita Armenta PA-C [id number] 250-250-65 mg (Excedrin Extra Strength) 1 tab PO Q6H PRN 5 days dextroamphetamine-amphetamine 15 mg ER (Adderall XR) 15 mg PO DAILY 28 days dicyclomine 10 mg PO QID 30 days escitalopram oxalate 10 mg PO DAILY 30 days hydroxyzine HCl 10 mg PO BEDTIME 30 days Tobacco use date assessed: 08/21/24 Dental Screening Dental Screen Date: 08/21/24 Did you have a dental visit in the last 12 months?: No Did you have a dental problem in the last 6 months where you did not have access to dental care?: No Was dental information given to patient?: Patient has dentist HPI 4 Month F/U HPI Details Patient is a 19-year-old male here today follow-up visit. Patient has a past medical history significant for anxiety, depression and ADHD. .. ADHD: Currently going to [facility] and was seeing a counselor and a mental health med provider whom was providing patient with his mental health medications. He has lost follow up with a psychiatrist and now needs PCP to manage his mental health medication including a stimulant ADHD medication. He reports benefit from ADHD medication though feels the effect of 15 mg Adderall has not been as effective lately. He is willing to increase his dose to 20 mg extended release.. .. Anxiety/ OCD: Does continue to suffer an anxiety disorder mostly related to OCD tendencies. He does report he is a Germaphobe and often his washing his hands to the point he gets skin irritation over his hands. He has unfortunately lost his left follow up with a psychiatrist He is on Lexapro though he is transitioned to fluvoxamine though did not fill those effective. Like to transition back to Lexapro. Also reports he is having trouble sleeping. Has tried melatonin though was ineffective. Vaccines: Up-to-date with COVID vaccine, flu vaccine, tetanus vaccine. [facility] Medical History COVID Surgical History No pertinent past surgical history Family History Mother No problems noted. Father No problems noted. Social History Household Members: Family Housing: House Alcohol intake: never Patient Tobacco Use Status: Never used Tobacco e-Cigarette/Vaping Use: Never Used Second Hand Smoke Exposure: No service: No Current occupational status: student Current occupation: [employer] Cognitive needs: No Hearing needs: No Vision needs: No Questionnaire Thrive Questionnaire Date Thrive assessed: 04/17/24 I am a: Patient What is your living situation today?: I choose not to answer this question Within the past 12 months, did the food you bought not last and you didn't have the money to get more?: Often true Within the past 12 months, did you worry whether your food would run out before you got money to buy more?: Often true Do you have trouble paying for medicines?: No Do you have trouble getting transportation to medical appointments?: No Do you have trouble paying your heating and electricity bill?: No Do you have trouble taking care of your child, family member or friend?: No Do you have trouble with day-to-day activities such as bathing, preparing meals, shopping, managing finances, etc.?: No Are you currently unemployed and looking for a job?: No Are you interested in more education?: Yes Currently or been in a relationship where the following occur: No concerns reported THRIVE Score: 2 SOHAM-7 AMB Questionnaire SOHAM-7 Date SOHAM - 7 assessed: 04/17/24 Source: Developed by Drs. Darci Staples, Lola Chiang, Denver Feliz and colleagues, with an educational carolyn from [employer]. Review of Systems Const Denies headache(s) Eyes Denies loss of vision ENT Denies vertigo, Denies dizziness, Denies headache(s) and Denies sore throat Card Denies chest pain, Denies leg edema and Denies lightheadedness Resp Denies cough, Denies hemoptysis and Denies wheezing GI Denies abdominal pain, Denies melena, Denies constipation, Denies diarrhea and Denies vomiting Denies dysuria, Denies urinary frequency and Denies urinary urgency Musc Denies arthralgias, Denies joint swelling, Denies numbness and Denies tingling Neuro Denies Abnormal speech present, Denies behavioral changes, Denies vertigo, Denies dizziness, Denies headache(s), Denies loss of vision, Denies memory loss, Denies numbness and Denies tingling Psych Denies anxiety, Denies behavioral changes, Denies depression, Denies memory loss and Denies panic attacks Lenny/Lymph Denies easy bleeding and Denies easy bruising Aller/Immun Denies wheezing Physical exam (Primary Care) Vital Signs: Last Vital Signs Temp 97.3 F 08/21/24 15:13 Pulse 73 08/21/24 15:13 BP 90/60 08/21/24 15:13 Pulse Ox 98 08/21/24 15:13 Oxygen Delivery Method Room Air 08/21/24 15:13 BMI result Body Mass Index 23.5 Tobacco/Smoking Status: Tobacco use Status Tobacco use date assessed 08/21/24 08/21/24 15:18 Patient Tobacco Use Status Never used Tobacco 08/21/24 15:18 e-Cigarette/Vaping Use Never Used 08/21/24 15:18 Thrive Assessment: Date of Thrive Assessment Date Thrive assessed 04/17/24 08/21/24 15:18 Currently or been in a relationship where the following occur: No concerns reported Const General: healthy appearing, no acute distress, alert and awake Nutritional Appearance: well nourished Orientation/consciousness: oriented to person, oriented to place and oriented to time HENMT Ears: TM's normal bilaterally General nose exam: Normal nasal mucous membranes and turbinates present Eyes Conjunctivae: conjunctivae normal Sclerae: sclerae normal Pupils: Equal, round and reactive pupils present Neck Neck: Yes no lymphadenopathy and Yes no JVD Thyroid: Thyroid normal Carotids: no bruits Resp Effort & Inspection: normal respiratory effort and not tachypneic Auscultation: no crackles, no rales, no rhonchi and no wheezes Cardio Rate: regular rate Rhythm: regular rhythm Heart sounds: no murmurs and normal S1 and S2 GI Palpation (GI): Soft to palpation, nontender, no hepatomegaly and no splenomegaly Auscultation: normal bowel sounds Skin General skin exam: no rashes or lesions noted and dry skin Neuro General: oriented to person, oriented to place and oriented to time Cranial nerves: Yes Equal, round and reactive pupils present Speech: No Abnormal speech present Gait exam (Neuro): Normal gait present Motor exam (neuro): no tremor noted Extrem Right upper extremity: full ROM Left upper extremity: full ROM Right lower extremity: full ROM; no edema Left lower extremity: full ROM; no edema Psych Mental Status: mental status grossly normal Speech and movement: Normal speech and movement present Affect: normal affect Attitude: cooperative Thought process: Normal thought process present Coding Level of Care Code Est Pt Level 3 (93335) Diagnoses Attention deficit hyperactivity disorder (ADHD), predominantly inattentive type F90.0 Attention deficit-hyperactivity disorder type: predominantly inattentive Moderate episode of recurrent major depressive disorder F33.1 Active/Remission status: currently active Major depression episode severity: moderate Major depression recurrence: recurrent Generalized anxiety disorder F41.1 Mixed obsessional thoughts and acts F42.2 Obsessive-compulsive disorder type: mixed obsessional thoughts and acts Assessment & Plan Assessment & Plan (1) ADHD: Code(s): F90.9 - Attention-deficit hyperactivity disorder, unspecified type Category: Medical Qualifiers: Attention deficit-hyperactivity disorder type: predominantly inattentive Qualified Code(s): F90.0 - Attention-deficit hyperactivity disorder, predominantly inattentive type Plan: As per HPI patient does have history of ADHD and was on stimulant ADHD medication. 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 Was followed by a PCP at his University though now in summer classes and mental health services are on hold. Has been using Adderall 15 mg with decent affect though feels it is not as effective as it once was. He is willing to increase his Adderall dose to 20 mg extended release (2) Major depressive disorder: Code(s): F32.9 - Major depressive disorder, single episode, unspecified Category: Medical Qualifiers: Active/Remission status: currently active Major depression episode severity: moderate Major depression recurrence: recurrent Qualified Code(s): F33.1 - Major depressive disorder, recurrent, moderate Plan: Currently still suffers with depression. He reports he has been trying some nonpharmacological treatments for both of anxiety and depression such as being more physically active and journaling. He is interested in restarting Lexapro 10 mg for his depression and anxiety. He is looking to get back into a counselor and eventually a psychiatrist to manage his mental health as well. (3) Generalized anxiety disorder: Code(s): F41.1 - Generalized anxiety disorder Category: Medical Plan: Anxiety has been existing condition for him. He also has OCD. Again will restart Lexapro 10 mg (4) OCD (obsessive compulsive disorder): Code(s): F42.9 - Obsessive-compulsive disorder, unspecified Category: Medical Qualifiers: Obsessive-compulsive disorder type: mixed obsessional thoughts and acts Qualified Code(s): F42.2 - Mixed obsessional thoughts and acts Plan: As above Medications: New dextroamphetamine-amphetamine 20 mg ER (Adderall XR) Partial Fill upon patient request. 20 mg PO DAILY 28 caps 0RF 28 days F90.0 - Attention-deficit hyperactivity disorder, predominantly inattentive type Refilled escitalopram oxalate 10 mg PO DAILY 30 tabs 3RF 30 days F42.9 - Obsessive-compulsive disorder, unspecified
[2024-08-21 15:13] VITALS: BP 90/60; PULSE 73; TEMP 36.3; O2SAT 98; BMI 23.5
--- OUTSIDE RECORDS SUMMARY | 2024-08-21 16:22 | XMS_ITS | Continuity of Care Document ---
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 [address], [id number] , [place], [place], [id number], [place]. tel:[phone] PREV VISIT, EST, AGE 5-11 [facility], [address] [place] [address], [address], [place] tel:[phone] [facility] Pediatric[facility] Well Visit (preventat reyna) (chief complaint) Headache (chief complaint) hgb= 14.9 (chief complaint) ADD/ADHD (chief complaint) Encntr for routine child health exam w/o abnormal findingsDieta ry counseling and surveillanceE ncounter for exam of ears and hearing w/o abnormal findingsEncou nter for screening, unspecifiedAc ne vulgarisAtten tion-deficit hyperactivity disorder, unspecified typeAllergic rhinitis, unspecified allergic rhinitis typeEpisodic tension-type headache, not intractable 6 No Information [facility], [address] [place] [address], [address], [place] tel:[phone] [facility] No Information 6 No Information [facility], [address] [place] [address], [address], [place] tel:[phone] [facility] Dental Encounter for dental exam and cleaning w/o abnormal findings 6 Ан[address]ей Wolfe. [address] [place] [address], [id number] [place], [place], [id number], [place]. tel:[phone] OFFICE/OUTPA TIENT VISIT, [facility], [address] [place] [address], [address], [place] tel:[phone] [facility] fever (chief complaint) Upper respiratory infection with cough and congestion 6 No Information OFFICE/OUTPA TIENT VISIT, [facility], [address] [place] [address], [address], [place] tel:[phone] [facility] Abdominal pain (chief complaint) Viral infectionCons tipation 5 No Information [facility], [address] [place] [address], [address], [place] tel:[phone] [facility] No Information 4 No Information PREV VISIT, [facility], AGE 5-11 [facility], [address] [place] [address], [address], [place] tel:[phone] [facility] Well Visit (preventat reyna) (chief complaint) hgb 11 (chief complaint) ADD/ADHD (chief complaint) ROUTIN CHILD HEALTH EXAMEXAM EARS & HEARING NECDietary surveillance and counselingScr eening for iron deficiency anemiaADHD 4 No Information [facility], [address] [place] [address], [address], tel:[phone] Conversion NEED FOR INFLUENZA VACCINATIONWE CHILD - ROUTINE VISITECZEMA 3 No Information [facility], [address] [place], [address], tel:[phone] Historic Immunization Location No Information 3 No [...] type b conjugate, and poliovirus vaccine, inactivated ([id number]-[id number]-XIU) administered Source: Other Provider Hep B (ped/adol, 3 dose) administered Mar rce: Other Provider PCV13 administered Source: Other P rovider diphtheria, tetanus toxoids and acellular pertussis vaccine, Haemophilus influenzae type b conjugate, and poliovirus vaccine, inactivated (ZWsO-Dxt-RKZ) administered Source: Other Provider Hep B (ped/adol, 3 dose) administered Mar rce: Other Provider diphtheria, tetanus toxoids and acellular pertussis vaccine, Haemophilus influenzae type b conjugate, and poliovirus vaccine, inactivated ([id number]-[id number]) administered Source: Other Provider PCV13 administered Source: Other P rovider Hep B (ped/adol, 3 dose) administered Mar rce: Other Provider IMMUNE ADMIN ORAL/NASAL administered Sour ce: New Immunization Record Payers Payer name Insurance type Covered constitution party ID Authornoela tilarissa(s) D Medicaid [id number] [facility] [id number] [facility] [id number] Social History Type Description Quantity Date Captured [...] fever, memory loss, nausea or neck stiffness. hgb= 14.9 ADD/ADHD The severity of the problem is [...] Additional information: Previously tx for ADHD in [place]. No longer taking medications. Mom would like [...] routine child health exam w/o abnormal findings Cetirizine dailyflon ase dailyfollow-up if symptoms worsen or do not improve Related to Allergic rhinitis, unspecified allergic rhinitis type Benzoclin BID-Can ta ke up to 4-6 weeks to see results-Irritation may occur, limit sun exposure/use sunscreen-F/u if no improvement in 4-6 weeks for alternative treatment options Related to Acne vulgaris Referral made to [facility] Behavioral HealthMother to make appt Related to [...] viralIncrease fluidsTylenol/motrin for feverhoney for coughReturn to [facility] or go to the ED if symptoms worsen or do not improve.The parent/patient verbalized an understanding of all instructions. Related to Upper respiratory infection with cough and congestion Educated that antibi otics are not prescribed for viral infections. Related to Upper respiratory infection with cough and congestion 1. Increase fluids a nd increase rest.2. Bent diet as tolerated3. Use saline nasal spray, as needed, for congestion or nasal irritation.4. Acetaminophen (Tylenol) or Ibuprofen (Advil), as needed, for pain or fever. 5. Symptomatic treatment, as needed-- throat lozenges, tea/honey, etc.6. If symptoms worsen, persist longer than 1 week, or if difficulty breathing develops, return to clinic or go to the emergency room right away. Related to Viral infection Oral Health Discussed (9-10 year s) Related to ROUTIN CHILD HEALTH EXAM Age appropriate safe ty discussed (9-10 years) Related to ROUTIN CHILD HEALTH EXAM Diet education Related to Dieta ry surveillance and counseling Exercise education Related to Di etary surveillance and counseling Age appropriate diet discussed (9-10 years) Related to ROUTIN CHILD HEALTH EXAM Age approriate antic ipatory guidance discussed (9-10 years) Related to ROUTIN CHILD HEALTH EXAM Assessments Type Assessment Date No Information Patient Care Teams Name Effective Dates (start - stop) Status Members No Information
== END 2024-08-21 15:52 | disposition home or self-care (01) ==
LOC: HO.HMCH 15:08
PROVIDERS: PCP Physician Assistant; Visit Provider Physician Assistant
DX: F90.0 Attention-deficit hyperactivity disorder, predominantly inattentive type (principal); F33.1 Major depressive disorder, recurrent, moderate; F41.1 Generalized anxiety disorder; F42.2 Mixed obsessional thoughts and acts

== ENCOUNTER → 2024-08-21 15:07 | Outpatient (BNVA) | payer OTHER, SELFPAY | PROVIDERS: PCP Physician Assistant; Visit Provider Physician Assistant | DX: F33.1 Major depressive disorder, recurrent, moderate (principal); K58.9 Irritable bowel syndrome, unspecified; F42.9 Obsessive-compulsive disorder, unspecified; F90.9 Attention-deficit hyperactivity disorder, unspecified type; G43.909 Migraine, unspecified, not intractable, without status migrainosus; F41.1 Generalized anxiety disorder; F42.2 Mixed obsessional thoughts and acts | CPT/HCPCS: 99212 ==

== ENCOUNTER 2024-10-19 14:58 | Outpatient (AMB) | payer OTHER, SELFPAY ==
--- NOTE | 2024-10-19 14:59 | MHC.PC.OV ---
Intake Visit Reasons: Telehealth ( follow-up ADHD ) Foreign Broadcast Specialist Required: No Accompanied by: Self / Same As Patient Allergies No Known Allergies (No Known Allergies*) Allergy (Verified 10/19/24 15:05) Medication List - Last Reconciled 10/19/24 by Nikita Armenta PA-C [id number] 250-250-65 mg (Excedrin Extra Strength) 1 tab PO Q6H PRN 5 days dextroamphetamine-amphetamine 20 mg ER (Adderall XR) 20 mg PO DAILY 28 days dicyclomine 10 mg PO QID 30 days escitalopram oxalate 10 mg PO DAILY 30 days hydroxyzine HCl 10 mg PO BEDTIME 30 days Tobacco use date assessed: 10/19/24 Dental Screening Dental Screen Date: 10/19/24 Did you have a dental visit in the last 12 months?: Yes Did you have a dental problem in the last 6 months where you did not have access to dental care?: No Was dental information given to patient?: No HPI Telehealth ( follow-up ADHD ) HPI Details Patient is a 19-year-old male being evaluated today via telephone. . Patient has a past medical history significant for anxiety, depression and ADHD. .. ADHD: Currently going to [facility] and was seeing a counselor and a mental health med provider whom was providing patient with his mental health medications. He has lost follow up with a psychiatrist and now needs PCP to manage his mental health medication including a stimulant ADHD medication. He is only using Adderall on a as needed basis for school and lab. He reports benefit from ADHD medication at 20 mg extended release. He reports maintaining a GB of 3.3 and denies any side effects from ADHD medication. .. Anxiety/ OCD: Does continue to suffer an anxiety disorder mostly related to OCD tendencies. He does report he is a Germaphobe and often his washing his hands to the point he gets skin irritation over his hands. He has unfortunately lost his left follow up with a psychiatrist He is on Lexapro though he is transitioned to fluvoxamine though did not fill those effective. Like to transition back to Lexapro. Also reports he is having trouble sleeping. Has tried melatonin though was ineffective. PFSH Medical History COVID Surgical History No pertinent past surgical history Family History Mother No problems noted. Father No problems noted. Social History Household Members: Family Housing: House Alcohol intake: never Patient Tobacco Use Status: Never used Tobacco e-Cigarette/Vaping Use: Never Used Second Hand Smoke Exposure: No service: No Current occupational status: student Current occupation: [email or web address] Cognitive needs: No Hearing needs: No Vision needs: No Questionnaire Thrive Questionnaire Date Thrive assessed: 04/17/24 AUDIT C Alcohol Use Questionnaire (AUDIT-C) 1. How often do you have a drink containing alcohol?: Never 3. How often do you have six or more drinks on one occasion?: Never Total Score: 0 SOHAM-7 AMB Questionnaire SOHAM-7 Date SOHAM - 7 assessed: 04/17/24 Source: Developed by Drs. Darci Staples, Lola Chiang, Denver Feliz and colleagues, with an educational carolyn from [employer]. Review of Systems Const Denies headache(s) Eyes Denies loss of vision ENT Denies vertigo, Denies dizziness, Denies headache(s) and Denies sore throat Card Denies chest pain, Denies leg edema and Denies lightheadedness Resp Denies cough, Denies hemoptysis and Denies wheezing GI Denies abdominal pain, Denies melena, Denies constipation, Denies diarrhea and Denies vomiting Denies dysuria, Denies urinary frequency and Denies urinary urgency Musc Denies arthralgias, Denies joint swelling, Denies numbness and Denies tingling Neuro Denies behavioral changes, Denies vertigo, Denies dizziness, Denies headache(s), Denies loss of vision, Denies memory loss, Denies numbness and Denies tingling Psych Denies anxiety, Denies behavioral changes, Denies depression, Denies memory loss and Denies panic attacks Lenny/Lymph Denies easy bleeding and Denies easy bruising Aller/Immun Denies wheezing Physical exam (Primary Care) Tobacco/Smoking Status: Tobacco use Status Tobacco use date assessed 10/19/24 10/19/24 15:04 Patient Tobacco Use Status Never used Tobacco 10/19/24 15:04 e-Cigarette/Vaping Use Never Used 10/19/24 15:04 Thrive Assessment: Date of Thrive Assessment Date Thrive assessed 04/17/24 10/19/24 15:04 Telehealth Telehealth Telehealth Platform: Telephone Location of provider rendering services: practice address Location of patient: address on file Patient Identification confirmed using: Name, : Yes Telehealth method: voice only Patient verbally consented to treatment: Yes Patient verbally consented to billing insurance company: Yes Patient informed of any privacy concerns related to visit: Yes Minutes spent on Phone/Video with Pt.: 11 Coding Level of Care Code Tele Est Pt Level 3 (61142) Diagnoses Attention deficit hyperactivity disorder (ADHD), predominantly inattentive type F90.0 Attention deficit-hyperactivity disorder type: predominantly inattentive Assessment & Plan Assessment & Plan (1) ADHD: Code(s): F90.9 - Attention-deficit hyperactivity disorder, unspecified type Category: Medical Qualifiers: Attention deficit-hyperactivity disorder type: predominantly inattentive Qualified Code(s): F90.0 - Attention-deficit hyperactivity disorder, predominantly inattentive type Plan: As per HPI patient does have history of ADHD and was on stimulant ADHD medication. 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 Was followed by a psychiatrist at his University though now in summer classes and mental health services are on hold. He currently is on Adderall 20 mg extended release which he reports his working very well for his attention focus on his school work. He is maintaining a GPA of 3.3 over the summer. He is only using the Adderall during classes and before laboratory sessions.
== END 2024-10-19 16:42 | disposition home or self-care (01) ==
LOC: HO.HMCH 14:58
PROVIDERS: PCP Physician Assistant; Visit Provider Physician Assistant
DX: F90.0 Attention-deficit hyperactivity disorder, predominantly inattentive type (principal)

== ENCOUNTER 2025-01-23 13:51 | Outpatient (AMB) | payer OTHER, SELFPAY ==
--- OUTSIDE RECORDS SUMMARY | 2015-04-12 10:00 | XMS_ITS | Continuity of Care Document ---
Author Organization [facility] Address [address] [place] [address] Phone Care Team Providers Care Community Living Specialist Name Role Phone Aiden Chiang RDH Unavailable Unavailable Allergies, Adverse Reactions, Alerts Substance Reaction Status Criticality No Known Allergies Active No Inform ation No Known Allergies Active No Inform ation Medications Medication Instructions Dosage Effective Dates (start - stop) Status Comments Benzaclin 1 %-5 % topical gel apply by topical route 2 times every day to the affected area(s) in the morning and evening - Active Brand only Flonase 50 mcg/actuation nasal spray,suspension inhale 1 spray by intranasal route every day in each nostril - Active cetirizine 10 mg tablet take 1 tablet by oral route every day 10 MG - Active penicillin V potassium 500 mg tablet take 1 tablet by oral route every 12 hours for 10 days - No Longer Active ibuprofen 200 mg tablet take 2 tablet by oral route every 6 hours as needed with food 400 MG - No Longer Active Miralax 17 gram/dose oral powder take (17G) by oral route every day mixed with 8 oz. water, juice, soda, coffee or tea - No Longer Active Procedures Procedure Date Detailed And Extensive Oral Evaluation-P justin Foc Screening PURE TONE HEARING TEST, AIR HEMOGLOBIN IMMUNIZATION ADM <= 18 YO, ANY ROUTE 1ST VAC/TOX, W/ Counseling HPV 0-10-54-72-97-38-45-52-58,nonaval HP V 3 Dose IMMUNIZATION ADM <= 18 YO, ANY ROUTE 1ST VAC/TOX, W/ Counseling Influenza Vaccine, Quad, Live LAIV4, Int ranasal IMMUNIZATION ADM <= 18 YO, ANY ROUTE 1ST VAC/TOX, W/ Counseling MENINGOCOCCAL VACCINE, Quad (MenACWY), I M IMMUNIZATION ADM <= 18 YO, ANY ROUTE 1ST VAC/TOX, W/ Counseling TDAP VACCINE >7 IM IMMUNIZATION ADM <= 18 YO, ANY ROUTE- Ad dt'l VAC/TOX, W/ Counseling PREV VISIT, EST, AGE 5-11 Detailed And Extensive Oral Evaluation-P carloslem Foc Screening Screening Screening OFFICE/OUTPATIENT VISIT, EST STREP A ASSAY W/OPTIC OFFICE/OUTPATIENT VISIT, EST PURE TONE HEARING TEST, AIR HEMOGLOBIN IMMUNIZATION ADMIN, EACH ADD HEP A VACC, PED/ADOL, 2 DOSE IMMUNIZATION ADMIN, EACH ADD FLU VACCINE, Trivalent, Live, NASAL IMMUNIZATION ADMIN CHICKEN POX VACCINE, SC PREV VISIT, EST, AGE 5-11 Advance Directives Directive Yes / No Effective Date File Name No Information Encounters Encounter Description Practice Location Reason(s) For Visit Diagnoses Date Provider Providers Copied on Encounter [facility], [address] [place], [address], [place] tel:[phone] [facility] Dental Encounter for dental exam and cleaning w/o abnormal findings [address], [id number] , [place], [place], [id number], [place]. tel:[phone] PREV VISIT, EST, AGE 5-11 [facility], [address] [place] [address], [address], [place] tel:[phone] [facility] Pediatrics Well Visit (preventat reyna) (chief complaint) Headache (chief complaint) hgb= 14.9 (chief complaint) ADD/ADHD (chief complaint) Encntr for routine child health exam w/o abnormal findingsDieta ry counseling and surveillanceE ncounter for exam of ears and hearing w/o abnormal findingsEncou nter for screening, unspecifiedAc ne vulgarisAtten tion-deficit hyperactivity disorder, unspecified typeAllergic rhinitis, unspecified allergic rhinitis typeEpisodic tension-type headache, not intractable 6 No Information [facility], [address] [place] [address], [address], [place] tel:[phone] [facility] Pediatrics No Information 6 No Information [facility], [address] [place] [address], [address], [place] tel:[phone] [facility] Dental Encounter for dental exam and cleaning w/o abnormal findings 6 [address]. [address] [place] [address], [id number] [place], [place], [id number], [place]. tel:[phone] OFFICE/OUTPA TIENT VISIT, [facility], [address] [place] [address], [address], [place] tel:[phone] [facility] Pediatrics fever (chief complaint) Upper respiratory infection with cough and congestion 6 No Information OFFICE/OUTPA TIENT VISIT, [facility], [address] [place] [address], [address], [place] tel:[phone] [facility] Pediatrics Abdominal pain (chief complaint) Viral infectionCons tipation 5 No Information [facility], [address] [place] [address], [address], [place] tel:[phone] [facility] Pediatrics No Information 4 No Information PREV VISIT, [facility], AGE 5-11 [facility], [address] [place] [address], [address], [place] tel:[phone] [facility] Pediatrics Well Visit (preventat reyna) (chief complaint) hgb 11 (chief complaint) ADD/ADHD (chief complaint) ROUTIN CHILD HEALTH EXAMEXAM EARS & HEARING NECDietary surveillance and counselingScr eening for iron deficiency anemiaADHD 4 No Information [facility], [address] [place], [address], tel:[phone] Conversion NEED FOR INFLUENZA VACCINATIONWE CHILD - ROUTINE VISITECZEMA 3 No Information [facility], [address] [place], [address], tel:[phone] Historic Immunization Location No Information 3 No Information Family History Family Member Type Diagnosis Age At Onset Brother Problem (finding) asthma Problem (finding) Mother Problem (finding) Anxiety Brother Problem (finding) attention defi cit hyperactivity disorder Maternal grandmother Problem (finding) asthma Brother Problem (finding) Eczema Maternal grandmother Problem (finding) migraine Immunizations Vaccine Date Status Comments Tdap administered Source: New Imm unization Record MCV4 (11-55 yrs) administered Source: New Immunization Record Influenza, live, intranasal, quadrivalent administered Source: New Immuniza tion Record HPV (9-valent) administered Source: New I mmunization Record Varicella administered Source: New Imm unization Record Influenza virus vaccine, intranasal administered Source: New Immuniza tion Record Hep A (ped/adol, 2 dose) administered Mar rce: New Immunization Record FLU VACCINE, NASAL administered Source: N ew Immunization Record DTaP-IPV administered Source: Other P rovider MMR administered Source: Other P rovider Varicella administered Source: Other P rovider Hep A (ped/adol, 2 dose) administered Mar rce: Other Provider Hib (PRP-OMP) administered Source: Other Provider DTaP (younger than 7 yrs) administered So urce: Other Provider MMR administered Source: Other P rovider PCV13 administered Source: Other P rovider diphtheria, tetanus toxoids and acellular pertussis vaccine, Haemophilus influenzae type b conjugate, and poliovirus vaccine, inactivated (IBmO-Rhi-UVR) administered Source: Other Provider Hep B (ped/adol, 3 dose) administered Mar rce: Other Provider PCV13 administered Source: Other P rovider diphtheria, tetanus toxoids and acellular pertussis vaccine, Haemophilus influenzae type b conjugate, and poliovirus vaccine, inactivated ([id number]-Nuv-[id number]) administered Source: Other Provider Hep B (ped/adol, 3 dose) administered Mar rce: Other Provider PCV13 administered Source: Other P rovider diphtheria, tetanus toxoids and acellular pertussis vaccine, Haemophilus influenzae type b conjugate, and poliovirus vaccine, inactivated ([id number]-Kga-GMM) administered Source: Other Provider Hep B (ped/adol, 3 dose) administered Mar rce: Other Provider IMMUNE ADMIN ORAL/NASAL administered Sour ce: New Immunization Record Payers Payer name Insurance type Covered green party ID Authoriza tilarissa(s) D Medicaid [id number] [facility] [id number] [facility] [id number] Social History Type Description Quantity Date Captured Comments Sex Male Smoking Status No Information Chief Complaint And Reason For Visit No Information Reason For Referral Reason For Referral No Information Plan Of Treatment Date Type Action Status Goal Diet education completed Goal Diet education completed History Of Present Illness Encounter Date Complaint History Of Prese nt Illness Headache The severity of the problem is mild. Pain scale: 0/10. The symptoms are recurring. Locations affected include frontal. Headache timing includes daytime. Aggravating factors include anxiety and noise. Associated symptoms include phonophobia. Pertinent negatives include blurred vision, dizziness, fever, memory loss, nausea or neck stiffness. ADD/ADHD The severity of the problem is moderate. The problem is worse. The frequency of the problem is daily. The behavior is described as problems at home and at school. Symptoms are associated with prior diagnosis of ADD/ADHD. Behaviors began before age 5 to some degree. Relevant symptoms of hyperactivity include fighting. Well Visit (preventative) Here f or annual well child check. Pertinent past medical history includes ADHD and eczema. Child is not currently on any daily meds. Child has no known allergies. There have been no recent fever, illnesses or hospitalizations. Sees dentist regularly. hgb= 14.9 fever Duration is 2 Da ys. The problem has not changed. The frequency of the symptom is daily. The patient's mother describes it as tactile. Context includes concurrent URI symptoms. Context does not include sick contacts at home. Relieving factors include ibuprofen. Associated symptoms include cough (cough is hacking and occurs nocturnal), decreased appetite, headache, nasal drainage and pharyngitis. Pertinent negatives include abdominal pain, back pain, decreased fluid intake, decreased urine output, diarrhea, dysuria, rash, sinus pressure and vomiting. Abdominal pain Onset: 5 Days. P ain scale: 3/10. The location is epigastric. The quality of the pain is sharp. Associated symptoms include constipation, nausea, nasal congestion, cough, rhinnorhea and headache. Pertinent negatives include back pain, bloating, blood in stool, change in appetite, diaphoresis, diarrhea, dizziness, dyspnea, eructation, fever, rash and vomiting. ADD/ADHD The behavior is described as problems at home and at school. Symptoms are associated with prior diagnosis of ADD/ADHD. Behaviors began before age 5 to some degree. Relevant symptoms of hyperactivity include fighting. Additional information: Previously tx for ADHD in [place]. No longer taking medications. Mom would like referral. Well Visit (preventative) Doing well. Well hydrated. Good growth and weight gain. No recent medical problems. Sees dentist regularly. Plays footbal and basketball. hgb 11 Functional Status Date Functional Assessmen t No Information Instructions Date Instruction Additional Infor luz marina tylenol or advil as neededdrink water throughout the day.Don't skip meals.Avoid caffeine (soda, tea, coffee, chocholate).Get at least 8 hours of sleep a night.F/u if headaches worsen or are not relieved by tylenol/advil. Related to Episodic tension-type headache, not intractable Cetirizine dailyflon ase dailyfollow-up if symptoms worsen or do not improve Related to Allergic rhinitis, unspecified allergic rhinitis type Referral made to [facility] Behavioral HealthMother to make appt Related to Attention-deficit hyperactivity disorder, unspecified type Benzoclin BID-Can ta ke up to 4-6 weeks to see results-Irritation may occur, limit sun exposure/use sunscreen-F/u if no improvement in 4-6 weeks for alternative treatment options Related to Acne vulgaris Immunizations: HPV, MCV, Tdap, f abbey Related to Encntr for routine child health exam w/o abnormal findings Exercise education Related to Di etary counseling and surveillance Diet education Related to Dieta ry counseling and surveillance Handout given Related to Encnt r for routine child health exam w/o abnormal findings Oral Health Discussed (11-14 yea rs) Related to Encntr for routine child health exam w/o abnormal findings Age appropriate safe ty discussed (11-14 years) Related to Encntr for routine child health exam w/o abnormal findings Age appropriate diet discussed (11-14 years) Related to Encntr for routine child health exam w/o abnormal findings Age appropriate anti cipatory guidance discussed (11-14 years) Related to Encntr for routine child health exam w/o abnormal findings Rapid strep was nega tive. Throat Cx sentUpper respiratory infection, likely viralIncrease fluidsTylenol/motrin for feverhoney for coughReturn to [facility] or go to the ED if symptoms worsen or do not improve.The parent/patient verbalized an understanding of all instructions. Related to Upper respiratory infection with cough and congestion Educated that antibi otics are not prescribed for viral infections. Related to Upper respiratory infection with cough and congestion 1. Increase fluids a nd increase rest.2. [place] diet as tolerated3. Use saline nasal spray, as needed, for congestion or nasal irritation.4. Acetaminophen (Tylenol) or Ibuprofen (Advil), as needed, for pain or fever. 5. Symptomatic treatment, as needed-- throat lozenges, tea/honey, etc.6. If symptoms worsen, persist longer than 1 week, or if difficulty breathing develops, return to clinic or go to the emergency room right away. Related to Viral infection Age appropriate safe ty discussed (9-10 years) Related to ROUTIN CHILD HEALTH EXAM Oral Health Discussed (9-10 year s) Related to ROUTIN CHILD HEALTH EXAM Age appropriate diet discussed (9-10 years) Related to ROUTIN CHILD HEALTH EXAM Age approriate antic ipatory guidance discussed (9-10 years) Related to ROUTIN CHILD HEALTH EXAM Diet education Related to Dieta ry surveillance and counseling Exercise education Related to Di etary surveillance and counseling Assessments Type Assessment Date No Information Patient Care Teams Name Effective Dates (start - stop) Status Members No Information
[2025-01-23 14:01] VITALS: BP 100/70; PULSE 71; TEMP 36.3; O2SAT 99; BMI 25.0
--- NOTE | 2025-01-23 14:01 | MHC.PC.OV ---
Vital Signs 01/23/25 14:01 Height 5 ft 5 in Weight 150 lb 8 oz BMI 25.0 BP 100/70 Blood Pressure Location Lt brachial Position Sitting Pulse 71 Pulse Source Pulse Oximeter Temp 97.3 F Temp Source Temporal Artery Scan Pulse Oximetry (%) 99 Oxygen Delivery Method Room Air Intake Visit Reasons: f/u in person ADHD/ SOHAM Household Appliance Installer Required: No Accompanied by: Self / Same As Patient Allergies No Known Allergies (No Known Allergies*) Allergy (Verified 01/23/25 14:22) Medication List - Last Reconciled 01/23/25 by Nikita Armenta PA-C [id number] [id number] mg (Excedrin Extra Strength) 1 tab PO Q6H PRN 5 days dextroamphetamine-amphetamine 20 mg ER (Adderall XR) 20 mg PO DAILY 28 days dicyclomine 10 mg PO QID 30 days escitalopram oxalate 10 mg PO DAILY 30 days hydroxyzine HCl 10 mg PO BEDTIME 30 days Tobacco use date assessed: 10/19/24 Dental Screening Dental Screen Date: 10/19/24 Did you have a dental visit in the last 12 months?: No Did you have a dental problem in the last 6 months where you did not have access to dental care?: No Was dental information given to patient?: No HPI f/u in person ADHD/ SOHAM HPI Details Patient is a 19-year-old male here today for follow-up visit . Patient has a past medical history significant for anxiety, depression and ADHD. .. ADHD: Currently going to [facility] and was seeing a counselor and a mental health med provider whom was providing patient with his mental health medications. He has lost follow up with a psychiatrist and now needs PCP to manage his mental health medication including a stimulant ADHD medication. He is only using Adderall on a as needed basis for school and lab. He reports benefit from ADHD medication at 20 mg extended release. He reports maintaining a GPA of 3.3 and denies any side effects from ADHD medication. .. Anxiety/ OCD: Does continue to suffer an anxiety disorder mostly related to OCD tendencies. He does report he is a Germaphobe and often his washing his hands to the point he gets skin irritation over his hands. He has recently ask for refill on Lexapro which she will start to help reduce his OCD tendencies.. [facility] Medical History COVID Surgical History No pertinent past surgical history Family History Mother No problems noted. Father No problems noted. Social History Household Members: Family Housing: House Alcohol intake: never Patient Tobacco Use Status: Never used Tobacco e-Cigarette/Vaping Use: Never Used Second Hand Smoke Exposure: No service: No Current occupational status: student Current occupation: [employer] Cognitive needs: No Hearing needs: No Vision needs: No Questionnaire PHQ-9 Over the last 2 weeks, how often have you been bothered by any of the following problems? 1. Little interest or pleasure in doing things: nearly every day 2. Feeling down, depressed, or hopeless: several days 3. Trouble falling or staying asleep, or sleeping too much: nearly every day 4. Feeling tired or having little energy: nearly every day 5. Poor appetite or overeating: nearly every day 6. Feeling bad about yourself - or that you are a failure or have let yourself or your family down: nearly every day 7. Trouble concentrating on things, such as reading the newspaper or watching television: nearly every day 8. Moving or speaking so slowly that other people could have noticed. Or the opposite - being so fidgety or restless that you have been moving around a lot more than usual: nearly every day 9. Thoughts that you would be better off or of hurting yourself in some way: several days Total score: 23 Depression Screening Interpretation: Positive Depression Screening Follow-up: Existing condition Depression Screening Done: Yes 90853 - PHQ-9 Billing: Yes Source: Developed by Drs. Darci Staples, Lola Chiang, Denver Feliz and colleagues, with an educational carolyn from [email or web address]. Thrive Questionnaire Date Thrive assessed: 04/17/24 I am a: Patient What is your living situation today?: I choose not to answer this question Within the past 12 months, did the food you bought not last and you didn't have the money to get more?: Often true Within the past 12 months, did you worry whether your food would run out before you got money to buy more?: Often true Do you have trouble paying for medicines?: No Do you have trouble getting transportation to medical appointments?: No Do you have trouble paying your heating and electricity bill?: No Do you have trouble taking care of your child, family member or friend?: No Do you have trouble with day-to-day activities such as bathing, preparing meals, shopping, managing finances, etc.?: No Are you currently unemployed and looking for a job?: No Are you interested in more education?: Yes Currently or been in a relationship where the following occur: No concerns reported THRIVE Score: 2 AUDIT C Alcohol Use Questionnaire (AUDIT-C) 1. How often do you have a drink containing alcohol?: Never 3. How often do you have six or more drinks on one occasion?: Never Total Score: 0 SOHAM-7 AMB Questionnaire SOHAM-7 Date SOHAM - 7 assessed: 04/17/24 Feeling nervous, anxious, or on edge: 3 = Nearly every day Not being able to stop or control worryin = Several days Worrying too much about different things: 1 = Several days Trouble relaxin = Several days Being so restless that it is hard to sit still: 0 = Not at all Becoming easily annoyed or irritable: 0 = Not at all Feeling afraid as if something awful might happen: 0 = Not at all Total SOHAM-7 score (0-4 normal; 5-9 mild; 10-14 moderate; 15-21 severe): 6 Source: Developed by Drs. Darci Staples, Lola Chiang, Denver Feliz and colleagues, with an educational carolyn from [email or web address]. Review of Systems Const Denies headache(s) Eyes Denies loss of vision ENT Denies vertigo, Denies dizziness, Denies headache(s) and Denies sore throat Card Denies chest pain, Denies leg edema and Denies lightheadedness Resp Denies cough, Denies hemoptysis and Denies wheezing GI Denies abdominal pain, Denies melena, Denies constipation, Denies diarrhea and Denies vomiting Denies dysuria, Denies urinary frequency and Denies urinary urgency Musc Denies arthralgias, Denies joint swelling, Denies numbness and Denies tingling Neuro Denies Abnormal speech present, Denies behavioral changes, Denies vertigo, Denies dizziness, Denies headache(s), Denies loss of vision, Denies memory loss, Denies numbness and Denies tingling Psych Denies anxiety, Denies behavioral changes, Denies depression, Denies memory loss and Denies panic attacks Lenny/Lymph Denies easy bleeding and Denies easy bruising Aller/Immun Denies wheezing Physical exam (Primary Care) Vital Signs: Last Vital Signs Temp 97.3 F 01/23/25 14:01 Pulse 71 01/23/25 14:01 BP 100/70 01/23/25 14:01 Pulse Ox 99 01/23/25 14:01 Oxygen Delivery Method Room Air 01/23/25 14:01 BMI result Body Mass Index 25.0 Tobacco/Smoking Status: Tobacco use Status Tobacco use date assessed 10/19/24 01/23/25 14:09 Patient Tobacco Use Status Never used Tobacco 01/23/25 14:09 e-Cigarette/Vaping Use Never Used 01/23/25 14:09 PHQ-9: PHQ-9 Score PHQ-9: Total score 23 01/23/25 14:27 Depression Screening Interpretation: Positive Depression Screening Follow-up: Existing condition Thrive Assessment: Date of Thrive Assessment Date Thrive assessed 04/17/24 01/23/25 14:09 Currently or been in a relationship where the following occur: No concerns reported Const General: healthy appearing, no acute distress, alert and awake Nutritional Appearance: well nourished Orientation/consciousness: oriented to person, oriented to place and oriented to time HENMT Ears: TM's normal bilaterally General nose exam: Normal nasal mucous membranes and turbinates present Eyes Conjunctivae: conjunctivae normal Sclerae: sclerae normal Pupils: Equal, round and reactive pupils present Neck Neck: Yes no lymphadenopathy and Yes no JVD Thyroid: Thyroid normal Carotids: no bruits Resp Effort & Inspection: normal respiratory effort and not tachypneic Auscultation: no crackles, no rales, no rhonchi and no wheezes Cardio Rate: regular rate Rhythm: regular rhythm Heart sounds: no murmurs and normal S1 and S2 GI Palpation (GI): Soft to palpation, nontender, no hepatomegaly and no splenomegaly Auscultation: normal bowel sounds Skin General skin exam: no rashes or lesions noted and dry skin Neuro General: oriented to person, oriented to place and oriented to time Cranial nerves: Yes Equal, round and reactive pupils present Speech: No Abnormal speech present Gait exam (Neuro): Normal gait present Motor exam (neuro): no tremor noted Extrem Right upper extremity: full ROM Left upper extremity: full ROM Right lower extremity: full ROM; no edema Left lower extremity: full ROM; no edema Psych Mental Status: mental status grossly normal Speech and movement: Normal speech and movement present Affect: normal affect Attitude: cooperative Thought process: Normal thought process present Office Procedures Flu Questionnaire Does the patient have a severe egg allergy?: No Does the patient have severe life threatening allergies?: No Does the patient have a fever or illness today?: No Has the patient ever had Guillain-[place] Syndrome?: No Has the patient ever had any past reaction to a flu shot?: No Immunizations Fluarix [id number] (PF) 45 mcg (15 mcg x 3)/0.5 mL IM syringe Performing Provider: Nikita Armenta PA-C [facility] Administered by: Rebecca Burgos LPN on 01/23/25 14:46 Dose Route Admin Location Dispensed Lot Number Expiration Date [facility] Licensed Reactor Operator 0.5 mL IM Left Deltoid 0.5 mL [id number] 09/18/24 [id number] [email or web address] VIS Given Date VIS Provided VIS Publication Date 01/23/25 Single Vaccine 24 Eligibility Eligibility Date Funding Source Not [facility] Eligible 01/23/25 Private Coding Level of Care Code Est Pt Level 4 (04854) Diagnoses Attention deficit hyperactivity disorder (ADHD), predominantly inattentive type F90.0 Attention deficit-hyperactivity disorder type: predominantly inattentive Generalized anxiety disorder F41.1 Mixed obsessional thoughts and acts F42.2 Obsessive-compulsive disorder type: mixed obsessional thoughts and acts Additional Codes PHQ-9 - 02532 - PHQ-9 Billing: Yes ([id number]) Assessment & Plan Assessment & Plan (1) ADHD: Code(s): F90.9 - Attention-deficit hyperactivity disorder, unspecified type Category: Medical Qualifiers: Attention deficit-hyperactivity disorder type: predominantly inattentive Qualified Code(s): F90.0 - Attention-deficit hyperactivity disorder, predominantly inattentive type Plan: As per HPI patient does have history of ADHD and was on stimulant ADHD medication. 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 Was followed by a PCP at his University though now in summer classes and mental health services are on hold. He continues on Adderall 20 mg extended release with decent affect. He is maintaining high GPA and doing well in school with his attention focus on his school related tasks. (2) Generalized anxiety disorder: Code(s): F41.1 - Generalized anxiety disorder Category: Medical Plan: Anxiety has been existing condition for him. He also has OCD. Again will restart Lexapro 10 mg to help him with his OCD tendencies in his anxiety overall. (3) OCD (obsessive compulsive disorder): Code(s): F42.9 - Obsessive-compulsive disorder, unspecified Category: Medical Qualifiers: Obsessive-compulsive disorder type: mixed obsessional thoughts and acts Qualified Code(s): F42.2 - Mixed obsessional thoughts and acts Plan: As above Orders: Orders Influenza [id number] Immunization Today Z23 - Encounter for immunization Medications: Discontinued hydroxyzine HCl Discontinued Reason: Doctor's Order 10 mg PO BEDTIME 30 days 30 tabs 2RF F41.1 - Generalized anxiety disorder, F41.9 - Anxiety disorder, unspecified
== END 2025-01-23 14:47 | disposition home or self-care (01) ==
LOC: HO.HMCH 13:52
PROVIDERS: PCP Physician Assistant; Visit Provider Physician Assistant
DX: F90.0 Attention-deficit hyperactivity disorder, predominantly inattentive type (principal); F41.1 Generalized anxiety disorder; F42.2 Mixed obsessional thoughts and acts; Z23 Encounter for immunization

== ENCOUNTER → 2025-01-23 13:51 | Outpatient (BNVA) | payer OTHER, SELFPAY | PROVIDERS: PCP Physician Assistant; Visit Provider Physician Assistant | DX: F41.1 Generalized anxiety disorder (principal); F32.A Depression, unspecified; F90.9 Attention-deficit hyperactivity disorder, unspecified type; F42.9 Obsessive-compulsive disorder, unspecified; F42.2 Mixed obsessional thoughts and acts; Z23 Encounter for immunization | CPT/HCPCS: 90471; 90656; 96127; 99212 ==